=== PATIENT | male | born 1995 | race Caucasian/White ===

== ENCOUNTER 2019-12-02 01:30 | Emergency (ER) | payer SELFPAY ==
[2019-12-02 01:34] VITALS: BP 109/65; PULSE 114; RESP 20; TEMP 37.1; O2SAT 97; BMI 29.1
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
[2019-12-02 01:50] VITALS: BP 139/103
[2019-12-02 01:55] VITALS: BP 139/103
[2019-12-02] MEDS: oxyCODONE-APAP 5-325 mg Tablet 2 TAB PO (02:52)
[2019-12-02 02:58] VITALS: BP 132/79; PULSE 75; RESP 16; O2SAT 97
== END 2019-12-02 02:59 | disposition home or self-care (01) ==
PROVIDERS: Emergency Provider Emergency Medicine
DX: S06.0X0A Concussion without loss of consciousness, initial encounter (principal); S00.83XA Contusion of other part of head, initial encounter; F17.210 Nicotine dependence, cigarettes, uncomplicated; S01.111A Laceration without foreign body of right eyelid and periocular area, initial encounter; Y04.2XXA Assault by strike against or bumped into by another person, initial encounter
CPT/HCPCS: 12011; 12345; 70450; 70486; 72125; 99281; 99283